=== PATIENT | male | born 1995 | race Caucasian/White ===

== ENCOUNTER 2020-03-26 22:31 | Emergency (ER) | payer MEDICARE, MEDICAID ==
[2020-03-26] MEDS ORDERED: DIPH/PERTUSS(ACELL)/TETANUS VAC/PF 0.5 ML SYR (>=10YO) IM ONE (22:41)
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
--- NOTE | 2020-03-26 23:56 | RADIOLOGY REPORT (SQ) ---
EXAM DESCRIPTION: X-RAY orbits CLINICAL HISTORY: Trauma COMPARISON: None available TECHNIQUE: Five views of the paranasal sinuses. FINDINGS: There is no visualization of the air-fluid levels in the visualized paranasal sinuses. There is no significant mucoperiosteal thickening in the visualized paranasal sinuses. Limited evaluation of the bilateral orbits demonstrates questionable irregularity along the superomedial aspect of the right orbit on frontal view. The bony nasal septum shows no significant deviation. IMPRESSION: Questionable irregularity along the superomedial aspect of the right orbital roof. Correlation with physical exam is suggested. If there is clinical concern for facial trauma, CT facial bones may considered as a more sensitive evaluation.
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
[2020-03-27] MEDS ORDERED: DIPH/PERTUSS(ACELL)/TETANUS VAC/PF 0.5 ML SYR (>=10YO) IM ONE (01:00)
[2020-03-27 06:08] VITALS: BP 131/69
== END 2020-03-27 06:08 | disposition home or self-care (01) ==
LOC: ER 22:31
DX: S01.112A Laceration without foreign body of left eyelid and periocular area, initial encounter (principal); H57.12 Ocular pain, left eye; X58.XXXA Exposure to other specified factors, initial encounter; Y93.83 Activity, rough housing and horseplay; Y92.009 Unspecified place in unspecified non-institutional (private) residence as the place of occurrence of the external cause; Z23 Encounter for immunization
CPT/HCPCS: 70200; 90471; 90715; 99283